=== PATIENT | male | born 1960 | race Caucasian/White ===

== ENCOUNTER 2024-01-04 09:33 | Emergency (ER) | payer MEDICARE, SELFPAY ==
[2024-01-04 09:54] VITALS: BP 107/45
[2024-01-04 10:12] LABS: % Basophils 0.4 % (0-2); % Eosinophils 0.5 % (0-6); % Immature Granulocytes 0.2 % (0-0.5); % Lymphocytes 10.4 % (20.5-51.1); % Monocytes 8.8 % (1.7-9.3); % Neutrophils 79.7 % (42.2-75.2); Absolute Eosinophils 0.1 10^3/uL (0-0.7); Absolute Monocytes 0.8 10^3/uL (0.1-0.6); Absolute Neutrophils 7.7 10^3/uL (1.4-6.5); Hematocrit 36.1 % (39.0-52.0); Hemoglobin 12.5 g/dL (13.0-18.0); Mean Corp Hgb Conc. 34.6 g/dL (33.0-37.0); Mean Corpuscular Hgb 32.2 pg (27.0-31.0); Mean Platelet Volume 9.5 fL (7.4-10.4); Nucleated Red Blood Cells % 0 % (-); Platelet Count 205 10^3/uL (130-400); Red Blood Cell Count 3.88 10^6/uL (4.70-6.10); Red Cell Dist. Width 12.2 % (11.5-14.5); White Blood Cell Count 9.6 10^3/uL (4.8-10.8)
[2024-01-04 10:23] LABS: ALT (SGPT) 26 U/L (0-50); AST (SGOT) 34 U/L (17-59); Albumin 4.3 g/dl (3.5-5.0); Alkaline Phosphatase 43 U/L (38-126); Blood Urea Nitrogen 22 mg/dl (9-20); Calcium 9.4 mg/dl (8.4-10.2); Carbon Dioxide 29 mmol/L (22-30); Chloride 103 mmol/L (98-107); Glucose 117 mg/dl (70-99); Potassium 4.6 mmol/L (3.5-5.1); Sodium 140 mmol/L (135-145); Total Bilirubin 1.3 mg/dl (0.2-1.3); Total Protein 6.9 g/dl (6.3-8.2); eGFR > 60.00
[2024-01-04 11:07] VITALS: BMI 26.0
[2024-01-04 11:44] LABS: Urine Albumin Negative (Neg - Trace); Urine Bilirubin Negative (Negative); Urine Character Clear (Clear); Urine Color Yellow; Urine Glucose Negative (Negative); Urine Ketone Trace (Negative); Urine Leukocyte Negative (Negative); Urine Nitrite Negative (Negative); Urine Occult Blood Trace (Negative); Urine Urobilinogen Negative (Neg - 1+)
--- NOTE | 2024-01-04 11:52 | ED.GENMED ---
History of Present Illness
General
Chief Complaint: Change in Mental Status
Source: patient
Exam Limitations: none
Time Seen by Provider: 01/04/24 11:28
History of Present Illness
History of Present Illness:
See MDM
Past History
Past History
ED Past Medical History: None and Other
Social History
Tobacco: Non-smoker
Alcohol: Occasional
Family History
Family History: Other (Father with non-Hodgkin's lymphoma in his 60s)
Phy Exam
Physical Exam
Physical Exam:
See MDM
Course
Orders/Labs/Results
Orders:
Orders
01/04/24 09:57
Bedside Glucose- Treatment ONCE
01/04/24 09:59
EKG [Electrocardiogram (*1)] Urgent
Reason for Study: Fatigue / Weakness
EKG- Treatment ONCE
Shoulder, Right 2 Views [CR Shoulder - Right Min 2 View] Urgent
Comment:
Reason For Exam: pain
01/04/24 10:04
Complete Blood Count/With Diff Urgent
Comprehensive Metabolic Panel Urgent
01/04/24 11:35
UA Reflex to Culture [Urinalysis Reflex To Culture] Urgent
Date Specimen was Collected: 01/04/24
Time Specimen was Collected: 11:19
Urine Microscopic Reflex Cult Urgent
01/04/24 11:51
Sling Right-Treatment ONCE
Ketorolac [Toradol] 30 mg IM NOW STA
Abnormal Lab Results
01/04/24 01/04/24
10:04 11:35
RBC 3.88 L 10^6/uL
(4.70-6.10)
Hgb 12.5 L g/dL
(13.0-18.0)
Hct 36.1 L %
(39.0-52.0)
MCH 32.2 H pg
(27.0-31.0)
Absolute Neuts (auto) 7.7 H 10^3/uL
(1.4-6.5)
Absolute Lymphs (auto) 1.0 L 10^3/uL
(1.2-3.4)
Absolute Monos (auto) 0.8 H 10^3/uL
(0.1-0.6)
Neutrophils % 79.7 H %
(42.2-75.2)
Lymphocytes % 10.4 L %
(20.5-51.1)
BUN 22 H mg/dl
(9-20)
Glucose 117 H mg/dl
(70-99)
Urine Ketones Trace A
(Negative)
Ur Occult Blood Reflex Trace A
(Negative)
01/04/24 10:04
01/04/24 10:04
Vital Signs
Initial and Last Documented VS:
Initial Vital Signs
Temp Pulse Resp BP Pulse Ox
98.3 F 64 16 107/45 98
01/04/24 09:54 01/04/24 09:54 01/04/24 09:54 01/04/24 09:54 01/04/24 09:54
Last Documented Vital Signs
Temp Pulse Resp BP Pulse Ox
98.3 F 64 16 107/45 98
01/04/24 09:54 01/04/24 09:54 01/04/24 09:54 01/04/24 09:54 01/04/24 09:54
MDM/Problems Addressed
Differential Diagnosis Includes:
HPI and MDM Narrative:
63-year-old male presenting for evaluation of right arm pain. His at bedside initially brought him in with concern for possible stroke. She recognize that he appeared confused last night and she found out that he had trouble moving his arm
today. However, patient had not told his that he injured his arm a few days ago and cannot move his arm secondary to pain. He blames confusion on poor sleep due to pain throughout the night. Patient states that he felt pain when he moved his
shoulder
Since he injured his shoulder, patient has remained active and was still mowing the lawn. We discussed that he likely has a rotator cuff strain. X-rays negative for fracture or malalignment. Blood work without significant abnormality
Will place in sling and discussed follow-up with orthopedics.
After hearing that there is decreased range of motion secondary to pain, is much less worried about possible stroke
Physical exam
General: Well appearing and non-toxic.
HEENT: protecting airway
Neck: appears supple
CV: No evidence of cyanosis. Regular rate and rhythm
Resp: No accessory muscle use
Abd: Non-distended
Extremities: Mild tenderness to palpation of right shoulder. Decreased range of motion secondary to pain in regards to internal rotation and abduction. Distal extremity otherwise neurovascular intact
Neuro: alert. No obvious focal neurodeficits
Psych: Normal affect
Skin: Intact
Problems Addressed including Acute and Chronic Conditions affecting care:
1. Confusion
Acuity: acute
Prognosis: stable
Details: Likely in the setting of poor sleep. Patient has no focal neurodeficits. We did discuss the possibility of TIA and outpatient MRI if symptoms persist
2. Right shoulder pain
Acuity: acute
Prognosis: stable
Details: Likely rotator cuff strain. Will give Toradol and sling and discussed follow-up with orthopedics
3. Microscopic hematuria
Acuity: acute
Prognosis: stable
Details: We discussed likely BPH and outpatient follow-up with PCP.
Differential Diagnosis (but not limited to): Shoulder strain, TIA
Testing considered: CT head but he has no focal neurodeficits
Drug therapy (if applicable): OTC meds, please see d/c instruction regarding Rx drugs
Amount and/or Complexity of Data Reviewed
Clinical info obtained from: Patient. states he was mildly confused last night
External data reviewed: N/A
Labs I independently reviewed (but not limited to): White blood cell count, hemoglobin and platelets without significant abnormality
Radiology: X-ray independently reviewed: Right shoulder x-ray without evidence of fracture
Pulse Ox: not hypoxic
EKG independently reviewed: Sinus rhythm, left axis, no STEMI
[place] Patroller: N/A
Critical Care: N/A
Risk of Complication:
Social Determinants of health: Good social support
Discussed with other providers: N/A
Escalation of Care includes Admit/Obs: After being observed in the Emergency Department, pt stable for discharge.
Occasional wrong word or 'sound a like' substitutions may have occurred due to the inherent limitations of voice recognition software. Read the chart carefully and recognize, using context, where substitutions have occurred.
*Critical Care Note
Total Time (30-74mins, 75-104mins- exclusive of procedures): Not Applicable
ED Attending Note
-
Portions of this chart may have been created with voice recognition software.� Occasional wrong word or��sound alike� substitutions may have occurred due to the inherent limitations of voice recognition software.
Discharge Plan
Departure
Patient Disposition: Home (Routine Discharge)
Date of Disposition: 01/04/24
Time of Disposition: 11:59
Patient with high blood pressure during this ER visit?: No
Discharge Problem:
Injury of right rotator cuff
Instructions: How to Use a Shoulder Sling ED
Prescriptions:
New
diclofenac potassium 50 mg tablet
50 mg PO BID Qty: 20 0RF
No Action
multivitamin [Daily Multiple] 1 EACH tablet
1 tab PO DAILY
meclizine 25 MG tablet
25 mg PO Q8HPRN PRN (Reason: nausea or vertigo) Qty: 21 0RF
Referrals:
Jace Wolff MD [Active] -
Activity Restrictions/Additional Instructions:
Please return for any worsening symptoms.
You may return at any time if you have further concerns.
Please follow up with your doctor at the first available appointment, preferably this week. Please have the microscopic blood in your urine reevaluated.
Please make an appointment to see the orthopedist.
Thank you for choosing [facility].
Interventions
Interventions:
*Risk Screen - Suicide Last Done: 01/04/24 09:54
*General Assessment Last Done: 01/04/24 09:54
*Neglect/Abuse Screening Last Done: 01/04/24 09:54
ED- Fall Risk Assessment Last Done: 01/04/24 11:27
*ED COVID-19 Vaccine History Last Done: 01/04/24 11:08
ED- Neurological Assessment Last Done: 01/04/24 11:25
Discharge Date and Time
Print Language: PAKIST[place]
[2024-01-04 11:53] LABS: Urine Bacteria Few (Negative); Urine Red Blood Cell 0-2 /HPF (0-2); Urine White Cell 0-2 /HPF (0-5)
[2024-01-04] MEDS: TORADOL 30 MG IM (11:59)
[2024-01-04 12:00] VITALS: BP 120/54
== END 2024-01-04 12:29 | disposition home or self-care (01) ==
LOC: EMR 09:33
PROVIDERS: Emergency Medicine; EMERGENCY PHYSICIAN Student in an Organized Health Care Education/Training Program; FAMILY PHYSICIAN Internal Medicine
DX: S46.001A Unspecified injury of muscle(s) and tendon(s) of the rotator cuff of right shoulder, initial encounter (principal); X58.XXXA Exposure to other specified factors, initial encounter
CPT/HCPCS: 99285; 96372; 73030; 80053; 81003; 81015; 85025; 93005